=== PATIENT | female | born 1935 | race Caucasian/White ===

== ENCOUNTER 2018-03-07 06:53 | Inpatient (IN) ==
[2018-02-24 11:32] LABS: Basophils % 0.3 % (0.0-0.8); Eosinophils # 0.1 10*3/uL (0.0-0.87); Hematocrit 34.7 VOL% (35.7-47.0); Hemoglobin 10.7 GM/DL (12.0-16.0); Immature Granulocytes % 0.4 %; Immature Granulocytes Absolute 0.05 #; Lymphocytes # 1.2 10*3/uL (1.4-4.0); Lymphocytes % 10.8 % (21.3-54.2); Mean Corpuscular HGB Conc 30.8 GM/DL (32-36); Mean Corpuscular Hemoglobin 27 PG (27-34); Mean Corpuscular Volume 86.1 FL (87-102); Mean Platelet Volume 10.1 FL (9.6-12.0); Neutrophils % 78.5 % (38.7-73.9); Platelet Count 371 T/CUMM (130-400); Red Blood Count 4.03 MC/CUMM (3.8-5.5); Red Cell Distribution Width 14.2 % (9.3-17.3); White Blood Count 11.5 T/CUMM (4-12)
[2018-02-24 12:01] LABS: Alanine Aminotransferase 20 U/L (13-56); Albumin 3.5 G/DL (3.4-5.0); Alkaline Phosphatase 65 U/L (45-117); Aspartate Amino Transferase 19 U/L (0-37); Bilirubin,Total < 0.39 MG/DL (0.2-1.0); Blood Urea Nitrogen 16 MG/DL (7-18); Calcium 9.3 MG/DL (8.5-10.1); Glucose 165 MG/DL (74-106); Osmolality,Calculated 281.5 MOS/KG (273-304); Potassium 4.5 MMOL/L (3.5-5.1); Sodium 139 MMOL/L (136-145); Total Protein 6.8 G/DL (6.4-8.3)
[~2018-03-07 06:53] MED LIST: HEPARIN/NACL 0.9% 2 UNITS/ML 500 ML IV ONE; NITROGLYCERIN DRIP 50 MG/250 ML BOTTLE IV ONE; PHENYLEPHRINE 10 MG/1 ML VIAL IV ONE; ceFAZolin 1,000 MG VIAL ONE
[2018-03-07] MEDS ORDERED: ceFAZolin 1,000 MG in SYRINGE 1 EACH IV ONE (07:00)
[2018-03-07] MEDS ORDERED: LACTATED RINGERS 1,000 ML IV SCH (08:00)
[2018-03-07] MEDS ORDERED: FAMOTIDINE 20 MG TABLET PO ONE (08:28)
[2018-03-07] MEDS ORDERED: DIAZEPAM 5 MG TABLET PO ONE (08:28)
[2018-03-07] MEDS ORDERED: HEPARIN 5,000 UNIT/1 ML VIAL ONE (08:46)
[2018-03-07] MEDS ORDERED: LIDOCAINE 1% 50 ML VIAL ONE (08:47)
[2018-03-07] MEDS ORDERED: TISSUE ADHESIVE 1 EACH APPLICATOR TOP ONE (08:47)
[2018-03-07] MEDS ORDERED: ONDANSETRON 4 MG/2 ML VIAL IV PRN (10:28)
[2018-03-07] MEDS ORDERED: PROMETHAZINE 25 MG/1 ML VIAL IM PRN (10:28)
[2018-03-07] MEDS ORDERED: HYDROmorphone 2 MG/1 ML VIAL IV PRN ×2 (10:28)
[2018-03-07] MEDS ORDERED: DEXTROSE 50% 25 GM/50 ML VIAL IV PRN (10:28)
[2018-03-07] MEDS ORDERED: GLUCAGON 1 MG VIAL IM PRN (10:28)
[2018-03-07] MEDS ORDERED: NALOXONE 0.4 MG/ML VIAL IV PRN (10:28)
[2018-03-07] MEDS ORDERED: PHENYLEPHRINE DRIP 40 MG/250 ML PREMIX IV SCH (10:30)
[2018-03-07] MEDS ORDERED: SEVOFLURANE 1 UNIT/15 MINUTE INH ONE (10:47)
[2018-03-07] MEDS ORDERED: PROPOFOL 200 MG/20 ML VIAL IV ONE (10:47)
[2018-03-07] MEDS ORDERED: SUFentanil 50 MCG/ML AMP ONE (10:48)
[2018-03-07] MEDS ORDERED: DEXAMETHASONE 10 MG/1 ML VIAL ONE (10:48)
[2018-03-07] MEDS ORDERED: GLYCOPYRROLATE 0.4 MG/2 ML VIAL ONE (10:48)
[2018-03-07] MEDS ORDERED: ONDANSETRON 4 MG/2 ML VIAL ONE (10:48)
[2018-03-07] MEDS ORDERED: hydrALAZINE 20 MG/1 ML VIAL ONE (10:48)
[2018-03-07] MEDS ORDERED: NEOSTIGMINE 10 MG/10 ML VIAL ONE (10:49)
[2018-03-07] MEDS ORDERED: ACETAMINOPHEN 1,000 MG/100 ML VIAL IV ONE (10:49)
[2018-03-07] MEDS ORDERED: LACTATED RINGERS 1,000 ML IV ONE (10:49)
[2018-03-07] MEDS ORDERED: ROCURONIUM 100 MG/10 ML VIAL IV ONE (10:49)
[2018-03-07] MEDS ORDERED: PHENYLEPHRINE 1 MG/10 ML SYRINGE IV ONE (10:49)
[2018-03-07] MEDS ORDERED: HEPARIN 10,000 UNIT/10 ML VIAL ONE (10:50)
[2018-03-07] MEDS ORDERED: PROTAMINE SULFATE 50 MG/5 ML VIAL IV ONE (10:50)
[2018-03-07] MEDS: ASPIRIN EC 81 MG TABLET PO SCH (13:03)
[2018-03-07] MEDS: LACTATED RINGERS 1,000 ML IV SCH (13:04)
[2018-03-07] MEDS: FAMOTIDINE 20 MG TABLET PO SCH (13:04)
[2018-03-07] MEDS: oxyCODONE/ACETAMINOPHEN 5-325 MG TABLET PO PRN ×3 (13:09→19:23)
[2018-03-07] MEDS: NITROPRUSSIDE 100 MG in DEXTROSE 5% 250 ML IV SCH ×2 (13:14→14:31)
[2018-03-07] MEDS ORDERED: NITROPRUSSIDE 50 MG/2 ML VIAL ONE (14:15)
[2018-03-07] MEDS: INSULIN REGULAR 100 UNIT/ML SUBCUT SCH (21:26)
[2018-03-07] MEDS: glipiZIDE 5 MG TABLET PO SCH (21:34)
[2018-03-08] MEDS: oxyCODONE/ACETAMINOPHEN 5-325 MG TABLET PO PRN ×2 (03:39→09:21)
[2018-03-08] MEDS: LACTATED RINGERS 1,000 ML IV SCH ×2 (05:10→09:08)
[2018-03-08] MEDS: hydroCHLOROthiazide 25 MG TABLET PO SCH (07:30)
[2018-03-08 07:42] LABS: Apearance,Urine CLOUDY (Clear); Bacteria,Urine Many /HPF (Few); Bilirubin,Urine Negative (Negative); Blood, Urine Negative (Negative); Glucose,Urine (UA) Negative (Negative); Ketones,Urine Negative (Negative); Mucus,Urine Occasional /LPF (Occasional); Nitrite,Urine Positive (Negative); Protein,Urine Negative; Squamous Epithelial Cell,Urine Occasional /HPF (0-10); Urine Color Yellow (Yellow); Urine Specific Gravity 1.006 (1.001-1.035); Urine Urobilinogen < 2.0 EU/DL (0.2-1.0); WBC,Urine 964 /HPF (0-6)
[2018-03-08 07:50] LABS: Basophils % 0.1 % (0.0-0.8); Eosinophils # 0.1 10*3/uL (0.0-0.87); Eosinophils % 0.4 % (0.00-10.9); Hematocrit 33.3 VOL% (35.7-47.0); Hemoglobin 10.4 GM/DL (12.0-16.0); Immature Granulocytes % 0.5 %; Immature Granulocytes Absolute 0.09 #; Lymphocytes # 1.5 10*3/uL (1.4-4.0); Lymphocytes % 8.6 % (21.3-54.2); Mean Corpuscular HGB Conc 31.2 GM/DL (32-36); Mean Corpuscular Hemoglobin 27 PG (27-34); Mean Corpuscular Volume 85.2 FL (87-102); Mean Platelet Volume 9.6 FL (9.6-12.0); Monocytes # 1.8 10*3/uL (0.11-0.8); Monocytes % 10.3 % (1.7-12.7); Neutrophils # 13.6 10*3/uL (1.4-7.4); Neutrophils % 80.1 % (38.7-73.9); Platelet Count 397 T/CUMM (130-400); Red Blood Count 3.91 MC/CUMM (3.8-5.5); Red Cell Distribution Width 14.2 % (9.3-17.3)
[2018-03-08] MEDS: INSULIN REGULAR 100 UNIT/ML SUBCUT SCH ×4 (08:00→20:05)
[2018-03-08 08:32] LABS: Calcium 9.2 MG/DL (8.5-10.1); Osmolality,Calculated 272.7 MOS/KG (273-304); Potassium 4.2 MMOL/L (3.5-5.1)
[2018-03-08] MEDS: SULFAMETHOX/TRIMETHOPRIM 800-160 MG TABLET PO SCH ×2 (09:06→20:05)
[2018-03-08] MEDS: ASPIRIN EC 81 MG TABLET PO SCH (09:06)
[2018-03-08] MEDS: ROSUVASTATIN 10 MG TABLET PO SCH (09:06)
[2018-03-08] MEDS: FAMOTIDINE 20 MG TABLET PO SCH (09:07)
[2018-03-08] MEDS: ATENOLOL 100 MG TABLET PO SCH (09:07)
[2018-03-08] MEDS: CLOPIDOGREL 75 MG TABLET PO SCH (09:07)
[2018-03-08] MEDS ORDERED: MAGNESIUM HYDROXIDE SUSP 30 ML UDCUP PO PRN (16:05)
[2018-03-08] MEDS ORDERED: BENZOCAINE/MENTHOL LOZENGE 18/BOX PO PRN (17:56)
[2018-03-08] MEDS: glipiZIDE 5 MG TABLET PO SCH (20:05)
[2018-03-09] MEDS ORDERED: metFORMIN 500 MG TABLET PO SCH (08:00)
[2018-03-09] MEDS: INSULIN REGULAR 100 UNIT/ML SUBCUT SCH ×2 (08:19→10:49)
[2018-03-09] MEDS: ROSUVASTATIN 10 MG TABLET PO SCH (09:09)
[2018-03-09] MEDS: CLOPIDOGREL 75 MG TABLET PO SCH (09:09)
[2018-03-09] MEDS: hydroCHLOROthiazide 25 MG TABLET PO SCH (09:09)
[2018-03-09] MEDS: ASPIRIN EC 81 MG TABLET PO SCH (09:09)
[2018-03-09] MEDS: FAMOTIDINE 20 MG TABLET PO SCH (09:09)
[2018-03-09] MEDS: SULFAMETHOX/TRIMETHOPRIM 800-160 MG TABLET PO SCH (09:09)
[2018-03-09] MEDS: ATENOLOL 100 MG TABLET PO SCH (09:10)
[2018-03-09 11:33] VITALS: BP 106/62
== END 2018-03-09 12:50 | disposition home or self-care (01) | DRG 38 ==
LOC: N.SDSINP 06:53 → N.ICU 11:17 → N.3E 03-08 14:10
PROVIDERS: ADMIT Surgery; ATTEND Surgery

== ENCOUNTER 2018-04-13 08:40 | Inpatient (IN) ==
[2018-04-13 09:23] LABS: Basophils % 0.2 % (0.0-0.8)
[2018-04-13 09:28] LABS: Eosinophils # 0.1 10*3/uL (0.0-0.87); Eosinophils % 0.8 % (0.00-10.9); Hematocrit 22.2 VOL% (35.7-47.0); Immature Granulocytes % 0.9 %; Immature Granulocytes Absolute 0.15 #; Lymphocytes % 6.2 % (21.3-54.2); Mean Corpuscular HGB Conc 27.9 GM/DL (32-36); Mean Corpuscular Hemoglobin 23 PG (27-34); Mean Corpuscular Volume 83.1 FL (87-102); Mean Platelet Volume 9.9 FL (9.6-12.0); Monocytes # 1.4 10*3/uL (0.11-0.8); Monocytes % 8.6 % (1.7-12.7); NRBC # 0.05 10*3/uL; Neutrophils # 13.3 10*3/uL (1.4-7.4); Neutrophils % 83.3 % (38.7-73.9); PT Patient Result 10.5 SECS; Platelet Count 465 T/CUMM (130-400); Red Blood Count 2.67 MC/CUMM (3.8-5.5); Red Cell Distribution Width 15.8 % (9.3-17.3)
[2018-04-13 09:33] LABS: Hemoglobin 6.2 GM/DL (12.0-16.0)
[2018-04-13 09:38] LABS: Alanine Aminotransferase 17 U/L (13-56); Alkaline Phosphatase 53 U/L (45-117); Aspartate Amino Transferase 12 U/L (0-37); Bilirubin,Total < 0.39 MG/DL (0.2-1.0); Blood Urea Nitrogen 13 MG/DL (7-18); Calcium 8.6 MG/DL (8.5-10.1); Glucose 149 MG/DL (74-106); Osmolality,Calculated 270.2 MOS/KG (273-304); Potassium 3.4 MMOL/L (3.5-5.1); Sodium 134 MMOL/L (136-145); Total Protein 6.4 G/DL (6.4-8.3); Troponin I Only < 0.015 NG/ML (0.00-0.045)
[2018-04-13 09:50] LABS: Anisocytosis 1+
[2018-04-13 09:51] LABS: Hypochromasia 2+
[2018-04-13 09:52] LABS: Ovalocytes Few
[2018-04-13 09:53] LABS: Polychromasia Few
[2018-04-13 09:54] LABS: Microcytosis 1+; Schistocytes 4+
[2018-04-13 09:55] LABS: Platelet Estimate Increased
[2018-04-13] MEDS ORDERED: DEXTROSE 50% 25 GM/50 ML VIAL IV PRN (10:25)
[2018-04-13] MEDS ORDERED: GLUCAGON 1 MG VIAL IM PRN (10:25)
[2018-04-13] MEDS ORDERED: ONDANSETRON 4 MG/2 ML VIAL IV PRN (10:25)
[2018-04-13] MEDS ORDERED: SODIUM CHLORIDE 0.9% 1,000 ML IV PRN (10:25)
[2018-04-13 12:41] LABS: Apearance,Urine CLOUDY (Clear); Bacteria,Urine Many /HPF (Few); Bilirubin,Urine Negative (Negative); Blood, Urine Negative (Negative); Glucose,Urine (UA) Negative (Negative); Ketones,Urine Negative (Negative); Mucus,Urine Occasional /LPF (Occasional); Nitrite,Urine Negative (Negative); Protein,Urine Negative; Squamous Epithelial Cell,Urine Occasional /HPF (0-10); Urine Color Amber (Yellow); Urine Specific Gravity 1.014 (1.001-1.035); Urine Urobilinogen < 2.0 EU/DL (0.2-1.0); WBC,Urine <1 /HPF (0-6)
[2018-04-13] MEDS: INSULIN REGULAR 100 UNIT/ML SUBCUT SCH ×3 (13:29→22:05)
[2018-04-13] MEDS: ALUMINUM/MAGNES/SIMETH MAX STR 30 ML UDCUP PO PRN ×2 (16:38→22:08)
[2018-04-13 22:54] LABS: Hematocrit 26.7 VOL% (35.7-47.0)
[2018-04-13 22:58] LABS: Hemoglobin 8.1 GM/DL (12.0-16.0)
[2018-04-14 06:59] LABS: Basophils % 0.3 % (0.0-0.8); Eosinophils # 0.2 10*3/uL (0.0-0.87); Eosinophils % 1.6 % (0.00-10.9); Hematocrit 25.4 VOL% (35.7-47.0); Immature Granulocytes % 0.6 %; Immature Granulocytes Absolute 0.07 #; Lymphocytes # 1.3 10*3/uL (1.4-4.0); Lymphocytes % 10.6 % (21.3-54.2); Mean Corpuscular HGB Conc 31.5 GM/DL (32-36); Mean Corpuscular Hemoglobin 26 PG (27-34); Mean Corpuscular Volume 81.9 FL (87-102); Mean Platelet Volume 9.7 FL (9.6-12.0); Monocytes # 1.3 10*3/uL (0.11-0.8); Monocytes % 10.5 % (1.7-12.7); NRBC # 0.09 10*3/uL; Neutrophils # 9.1 10*3/uL (1.4-7.4); Neutrophils % 76.4 % (38.7-73.9); Platelet Count 363 T/CUMM (130-400); Red Cell Distribution Width 15.4 % (9.3-17.3); White Blood Count 11.9 T/CUMM (4-12)
[2018-04-14] MEDS ORDERED: MAGNESIUM HYDROXIDE SUSP 30 ML UDCUP PO PRN (07:06)
[2018-04-14] MEDS: INSULIN REGULAR 100 UNIT/ML SUBCUT SCH ×4 (08:41→22:02)
[2018-04-14] MEDS: hydroCHLOROthiazide 25 MG TABLET PO SCH (09:01)
[2018-04-14] MEDS: ATENOLOL 100 MG TABLET PO SCH (09:01)
[2018-04-14] MEDS: SIMVASTATIN 10 MG TABLET PO SCH (09:02)
[2018-04-14] MEDS: metFORMIN 500 MG TABLET PO SCH (09:02)
[2018-04-14] MEDS: MULTIVITAMIN (CENTRUM) TABLET PO SCH ×2 (09:02→21:54)
[2018-04-14 11:24] LABS: Apearance,Urine CLOUDY (Clear); Bacteria,Urine Occasional /HPF (Few); Bilirubin,Urine Negative (Negative); Blood, Urine Negative (Negative); Glucose,Urine (UA) Negative (Negative); Ketones,Urine Negative (Negative); Mucus,Urine Occasional /LPF (Occasional); Nitrite,Urine Negative (Negative); Protein,Urine Negative; RBC,Urine 3 /HPF (0-4); Urine Color Yellow (Yellow); Urine Specific Gravity 1.012 (1.001-1.035); Urine Urobilinogen < 2.0 EU/DL (0.2-1.0); WBC,Urine <1 /HPF (0-6)
[2018-04-14] MEDS: CALCIUM CARBONATE CHEW 500 MG TABLET PO PRN ×2 (13:14→16:36)
[2018-04-14] MEDS ORDERED: POTASSIUM CHLORIDE 20 MEQ TABLET PO ONE (17:11)
[2018-04-14] MEDS: FAMOTIDINE 20 MG TABLET PO SCH (21:54)
[2018-04-14] MEDS: glipiZIDE 5 MG TABLET PO SCH (21:55)
[2018-04-15 05:23] LABS: Basophils % 0.3 % (0.0-0.8); Eosinophils # 0.2 10*3/uL (0.0-0.87); Eosinophils % 1.5 % (0.00-10.9); Hematocrit 25.4 VOL% (35.7-47.0); Hemoglobin 7.5 GM/DL (12.0-16.0); Immature Granulocytes % 0.5 %; Immature Granulocytes Absolute 0.05 #; Lymphocytes # 1.1 10*3/uL (1.4-4.0); Lymphocytes % 10.7 % (21.3-54.2); Mean Corpuscular HGB Conc 29.5 GM/DL (32-36); Mean Corpuscular Hemoglobin 25 PG (27-34); Mean Corpuscular Volume 84.1 FL (87-102); Mean Platelet Volume 9.7 FL (9.6-12.0); Monocytes # 1.4 10*3/uL (0.11-0.8); Monocytes % 12.9 % (1.7-12.7); NRBC # 0.05 10*3/uL; Neutrophils # 7.9 10*3/uL (1.4-7.4); Neutrophils % 74.1 % (38.7-73.9); Platelet Count 350 T/CUMM (130-400); Red Blood Count 3.02 MC/CUMM (3.8-5.5); Red Cell Distribution Width 15.7 % (9.3-17.3); White Blood Count 10.7 T/CUMM (4-12)
[2018-04-15 05:52] LABS: Calcium 8.4 MG/DL (8.5-10.1); Osmolality,Calculated 279.4 MOS/KG (273-304); Potassium 3.7 MMOL/L (3.5-5.1)
[2018-04-15] MEDS: metFORMIN 500 MG TABLET PO SCH (09:45)
[2018-04-15] MEDS: MULTIVITAMIN (CENTRUM) TABLET PO SCH ×2 (09:45→20:23)
[2018-04-15] MEDS: INSULIN REGULAR 100 UNIT/ML SUBCUT SCH ×4 (09:45→20:25)
[2018-04-15] MEDS: SIMVASTATIN 10 MG TABLET PO SCH (09:46)
[2018-04-15] MEDS: hydroCHLOROthiazide 25 MG TABLET PO SCH (09:46)
[2018-04-15] MEDS: LOSARTAN 25 MG TABLET PO SCH (09:52)
[2018-04-15] MEDS: ATENOLOL 100 MG TABLET PO SCH (09:52)
[2018-04-15] MEDS ORDERED: PROPOFOL 200 MG/20 ML VIAL IV ONE (10:00)
[2018-04-15] MEDS ORDERED: PHENYLEPHRINE 1 MG/10 ML SYRINGE IV ONE (10:00)
[2018-04-15] MEDS ORDERED: LIDOCAINE 100 MG/5 ML SYRINGE ONE (10:00)
[2018-04-15] MEDS: FAMOTIDINE 20 MG TABLET PO SCH (20:23)
[2018-04-15] MEDS: glipiZIDE 5 MG TABLET PO SCH (20:23)
[2018-04-16 05:49] LABS: Basophils % 0.2 % (0.0-0.8); Eosinophils # 0.2 10*3/uL (0.0-0.87); Eosinophils % 2.2 % (0.00-10.9); Hematocrit 26.3 VOL% (35.7-47.0); Hemoglobin 7.6 GM/DL (12.0-16.0); Immature Granulocytes % 0.6 %; Immature Granulocytes Absolute 0.06 #; Lymphocytes % 10.5 % (21.3-54.2); Mean Corpuscular HGB Conc 28.9 GM/DL (32-36); Mean Corpuscular Hemoglobin 25 PG (27-34); Mean Corpuscular Volume 84.8 FL (87-102); Mean Platelet Volume 9.8 FL (9.6-12.0); Monocytes # 1.2 10*3/uL (0.11-0.8); Monocytes % 12.4 % (1.7-12.7); Neutrophils % 74.1 % (38.7-73.9); Platelet Count 354 T/CUMM (130-400); Red Cell Distribution Width 15.9 % (9.3-17.3); White Blood Count 9.4 T/CUMM (4-12)
[2018-04-16 06:08] LABS: Calcium 8.5 MG/DL (8.5-10.1); Osmolality,Calculated 285.1 MOS/KG (273-304); Potassium 4.5 MMOL/L (3.5-5.1)
[2018-04-16 06:33] LABS: Hypochromasia 1+; Microcytosis 1+; Platelet Estimate Normal
[2018-04-16] MEDS: INSULIN REGULAR 100 UNIT/ML SUBCUT SCH ×4 (08:13→21:42)
[2018-04-16] MEDS: MULTIVITAMIN (CENTRUM) TABLET PO SCH ×2 (09:11→21:43)
[2018-04-16] MEDS: hydroCHLOROthiazide 25 MG TABLET PO SCH (09:12)
[2018-04-16] MEDS: SIMVASTATIN 10 MG TABLET PO SCH (09:12)
[2018-04-16] MEDS: metFORMIN 500 MG TABLET PO SCH (09:12)
[2018-04-16] MEDS: ATENOLOL 100 MG TABLET PO SCH (09:17)
[2018-04-16] MEDS: LOSARTAN 25 MG TABLET PO SCH (09:17)
[2018-04-16] MEDS: cephALEXin 500 MG CAPSULE PO SCH ×2 (12:14→21:42)
[2018-04-16] MEDS: FAMOTIDINE 20 MG TABLET PO SCH (21:42)
[2018-04-16] MEDS: glipiZIDE 5 MG TABLET PO SCH (21:42)
[2018-04-17 05:35] LABS: Basophils % 0.2 % (0.0-0.8); Eosinophils # 0.2 10*3/uL (0.0-0.87); Eosinophils % 2.4 % (0.00-10.9); Hematocrit 24.5 VOL% (35.7-47.0); Hemoglobin 7.2 GM/DL (12.0-16.0); Immature Granulocytes % 0.3 %; Immature Granulocytes Absolute 0.03 #; Lymphocytes # 1.1 10*3/uL (1.4-4.0); Lymphocytes % 12.9 % (21.3-54.2); Mean Corpuscular HGB Conc 29.4 GM/DL (32-36); Mean Corpuscular Hemoglobin 25 PG (27-34); Mean Corpuscular Volume 84.5 FL (87-102); Mean Platelet Volume 9.7 FL (9.6-12.0); Monocytes % 11.8 % (1.7-12.7); NRBC # 0.02 10*3/uL; Neutrophils # 6.4 10*3/uL (1.4-7.4); Neutrophils % 72.4 % (38.7-73.9); Platelet Count 350 T/CUMM (130-400); Red Cell Distribution Width 15.9 % (9.3-17.3); White Blood Count 8.8 T/CUMM (4-12)
[2018-04-17 06:06] LABS: Calcium 8.3 MG/DL (8.5-10.1); Osmolality,Calculated 279.4 MOS/KG (273-304); Potassium 4.1 MMOL/L (3.5-5.1)
[2018-04-17] MEDS: INSULIN REGULAR 100 UNIT/ML SUBCUT SCH ×4 (08:23→21:11)
[2018-04-17] MEDS: metFORMIN 500 MG TABLET PO SCH (08:40)
[2018-04-17] MEDS: ATENOLOL 100 MG TABLET PO SCH (08:40)
[2018-04-17] MEDS: MULTIVITAMIN (CENTRUM) TABLET PO SCH ×2 (08:40→21:07)
[2018-04-17] MEDS: cephALEXin 500 MG CAPSULE PO SCH ×2 (08:40→21:08)
[2018-04-17] MEDS: hydroCHLOROthiazide 25 MG TABLET PO SCH (08:40)
[2018-04-17] MEDS: SIMVASTATIN 10 MG TABLET PO SCH (08:40)
[2018-04-17] MEDS ORDERED: FUROSEMIDE 40 MG/4 ML VIAL IV ONE (13:05)
[2018-04-17] MEDS ORDERED: SODIUM CHLORIDE 0.9% 1,000 ML IV PRN (13:08)
[2018-04-17] MEDS: LOSARTAN 25 MG TABLET PO SCH (13:16)
[2018-04-17] MEDS: glipiZIDE 5 MG TABLET PO SCH (21:08)
[2018-04-17] MEDS: FAMOTIDINE 20 MG TABLET PO SCH (21:09)
[2018-04-17 22:20] LABS: Hematocrit 32.2 VOL% (35.7-47.0); Hemoglobin 9.8 GM/DL (12.0-16.0)
[2018-04-18 05:33] LABS: Basophils % 0.4 % (0.0-0.8); Eosinophils # 0.2 10*3/uL (0.0-0.87); Eosinophils % 2.9 % (0.00-10.9); Hematocrit 31.3 VOL% (35.7-47.0); Immature Granulocytes % 0.4 %; Immature Granulocytes Absolute 0.03 #; Lymphocytes # 0.9 10*3/uL (1.4-4.0); Lymphocytes % 10.9 % (21.3-54.2); Mean Corpuscular HGB Conc 31.9 GM/DL (32-36); Mean Corpuscular Hemoglobin 26 PG (27-34); Mean Corpuscular Volume 80.1 FL (87-102); Mean Platelet Volume 9.8 FL (9.6-12.0); Monocytes # 1.3 10*3/uL (0.11-0.8); Monocytes % 15.1 % (1.7-12.7); Neutrophils # 5.9 10*3/uL (1.4-7.4); Neutrophils % 70.3 % (38.7-73.9); Platelet Count 354 T/CUMM (130-400); Red Blood Count 3.91 MC/CUMM (3.8-5.5); Red Cell Distribution Width 15.9 % (9.3-17.3); White Blood Count 8.4 T/CUMM (4-12)
[2018-04-18 05:56] LABS: Calcium 8.7 MG/DL (8.5-10.1); Osmolality,Calculated 277.5 MOS/KG (273-304); Potassium 3.6 MMOL/L (3.5-5.1)
[2018-04-18] MEDS: INSULIN REGULAR 100 UNIT/ML SUBCUT SCH ×4 (08:00→22:36)
[2018-04-18] MEDS: ATENOLOL 100 MG TABLET PO SCH (08:44)
[2018-04-18] MEDS: cephALEXin 500 MG CAPSULE PO SCH ×2 (08:44→21:13)
[2018-04-18] MEDS: hydroCHLOROthiazide 25 MG TABLET PO SCH (08:44)
[2018-04-18] MEDS: MULTIVITAMIN (CENTRUM) TABLET PO SCH ×3 (08:44→21:14)
[2018-04-18] MEDS: SIMVASTATIN 10 MG TABLET PO SCH (08:44)
[2018-04-18] MEDS: metFORMIN 500 MG TABLET PO SCH (08:44)
[2018-04-18] MEDS: LOSARTAN 25 MG TABLET PO SCH (08:44)
[2018-04-18] MEDS ORDERED: BISACODYL 5 MG TABLET PO ONE (11:21)
[2018-04-18] MEDS ORDERED: POLYETHYLENE GLYCOL POWDER 255 GM BOTTLE PO ONE (12:00)
[2018-04-18] MEDS: FAMOTIDINE 20 MG TABLET PO SCH (21:13)
[2018-04-18] MEDS: glipiZIDE 5 MG TABLET PO SCH (21:13)
[2018-04-19 05:22] LABS: Basophils % 0.3 % (0.0-0.8); Eosinophils # 0.2 10*3/uL (0.0-0.87); Eosinophils % 2.2 % (0.00-10.9); Immature Granulocytes % 0.5 %; Immature Granulocytes Absolute 0.05 #; Lymphocytes # 1.2 10*3/uL (1.4-4.0); Lymphocytes % 11.1 % (21.3-54.2); Mean Corpuscular HGB Conc 31.3 GM/DL (32-36); Mean Corpuscular Hemoglobin 25 PG (27-34); Mean Platelet Volume 9.8 FL (9.6-12.0); Monocytes # 1.3 10*3/uL (0.11-0.8); Monocytes % 12.6 % (1.7-12.7); Neutrophils # 7.7 10*3/uL (1.4-7.4); Neutrophils % 73.3 % (38.7-73.9); Platelet Count 367 T/CUMM (130-400); White Blood Count 10.6 T/CUMM (4-12)
[2018-04-19 05:33] LABS: PT Patient Result 10.7 SECS
[2018-04-19 05:46] LABS: Calcium 8.8 MG/DL (8.5-10.1); Osmolality,Calculated 275.5 MOS/KG (273-304); Potassium 3.1 MMOL/L (3.5-5.1)
[2018-04-19] MEDS: POTASSIUM CHLORIDE RIDER 10 MEQ in PREMIX 1 EACH IV PRN ×3 (06:39→13:03)
[2018-04-19] MEDS: INSULIN REGULAR 100 UNIT/ML SUBCUT SCH ×3 (07:51→17:35)
[2018-04-19] MEDS: metFORMIN 500 MG TABLET PO SCH (08:06)
[2018-04-19] MEDS: hydroCHLOROthiazide 25 MG TABLET PO SCH (08:08)
[2018-04-19] MEDS: cephALEXin 500 MG CAPSULE PO SCH (08:08)
[2018-04-19] MEDS: LOSARTAN 25 MG TABLET PO SCH (08:08)
[2018-04-19] MEDS: MULTIVITAMIN (CENTRUM) TABLET PO SCH (08:08)
[2018-04-19] MEDS: ATENOLOL 100 MG TABLET PO SCH (08:08)
[2018-04-19] MEDS: SIMVASTATIN 10 MG TABLET PO SCH (08:09)
[2018-04-19] MEDS ORDERED: LOSARTAN 50 MG TABLET PO SCH (08:52)
[2018-04-19] MEDS ORDERED: LIDOCAINE 1% 5 ML VIAL ONE (10:24)
[2018-04-19] MEDS ORDERED: PROPOFOL 200 MG/20 ML VIAL IV ONE (10:24)
[2018-04-19] MEDS ORDERED: PANTOPRAZOLE 40 MG TABLET PO SCH (14:00)
[2018-04-19 16:07] VITALS: BP 112/56
== END 2018-04-19 17:20 | disposition home or self-care (01) | DRG 378 ==
LOC: EDBD → EDUNIT# → N.ED 08:40 → N.EDINP 10:24 → N.2W 12:29 → N.TELEN 16:04
PROVIDERS: ADMIT Family Medicine; ATTEND Family Medicine

== ENCOUNTER 2022-08-24 05:33 | Inpatient (IN) ==
[2022-08-24] MEDS ORDERED: VANCOMYCIN INJ 1,000 MG in SODIUM CHLORIDE 0.9% 250 ML IV ONE (06:00)
[2022-08-24] MEDS ORDERED: CLINDAMYCIN INJ 900 MG/50 ML PREMIX IV ONE (06:00)
[2022-08-24 07:01] LABS: PT Patient Result 10.8 SECS (10.1-12.1); Partial Thromboplastin Time 27.9 SECS (23.7-32.9)
[2022-08-24] MEDS ORDERED: cloNIDine 0.1 MG TABLET PO PRN (09:00)
[2022-08-24] MEDS ORDERED: DEXMEDETOMIDINE 200 MCG/2 ML VIAL ONE (09:30)
[2022-08-24] MEDS ORDERED: DEXAMETHASONE 4 MG/1 ML VIAL ONE ×2 (09:30→10:48)
[2022-08-24] MEDS ORDERED: fentaNYL 100 MCG/2 ML VIAL ONE ×2 (09:30→09:40)
[2022-08-24] MEDS ORDERED: LIDOCAINE 1% 5 ML VIAL ONE (09:30)
[2022-08-24] MEDS ORDERED: ROPIVACAINE 0.5% 30 ML VIAL ONE (09:30)
[2022-08-24] MEDS ORDERED: propofoL 200 MG/20 ML VIAL IV ONE ×2 (09:31→10:57)
[2022-08-24] MEDS ORDERED: ETOMIDATE 40 MG/20 ML VIAL IV ONE (09:31)
[2022-08-24] MEDS ORDERED: BUPIVACAINE SPINAL 0.75% 2 ML AMP SPINAL ONE (09:31)
[2022-08-24] MEDS ORDERED: KETAMINE 500 MG/10 ML VIAL ONE (09:32)
[2022-08-24] MEDS ORDERED: buprenorphine HCL 0.3 MG/ML VIAL ONE (10:08)
[2022-08-24] MEDS ORDERED: FUROSEMIDE 20 MG TABLET PO PRN (10:18)
[2022-08-24] MEDS ORDERED: POTASSIUM CHLORIDE 10 MEQ TABLET PO PRN (10:18)
[2022-08-24] MEDS ORDERED: ONDANSETRON 4 MG/2 ML VIAL IV PRN (10:20)
[2022-08-24] MEDS ORDERED: MORPHINE 2 MG/1 ML SYRINGE IV PRN ×2 (10:20)
[2022-08-24] MEDS ORDERED: MAGNESIUM HYDROXIDE SUSP 30 ML UDCUP PO PRN (10:20)
[2022-08-24] MEDS ORDERED: KETOROLAC 15 MG/1 ML VIAL IV SCH (10:30)
[2022-08-24] MEDS ORDERED: ePHEDrine 50 MG/ML VIAL ONE (10:32)
[2022-08-24] MEDS ORDERED: PHENYLEPHRINE 1 MG/10 ML SYRINGE IV ONE ×2 (10:46→10:57)
[2022-08-24] MEDS ORDERED: ONDANSETRON 4 MG/2 ML VIAL ONE (10:48)
[2022-08-24] MEDS ORDERED: LIDOCAINE 2% 5 ML VIAL ONE (11:02)
[2022-08-24] MEDS ORDERED: SODIUM CHLORIDE 0.9% 100 ML IV ONE (11:39)
[2022-08-24] MEDS ORDERED: LACTATED RINGERS 1,000 ML IV ONE (11:39)
[2022-08-24] MEDS ORDERED: TRANEXAMIC ACID 1,000 MG/10 ML VIAL ONE (11:40)
[2022-08-24] MEDS: KETOROLAC 15 MG/1 ML VIAL IV SCH ×2 (14:58→21:08)
[2022-08-24] MEDS ORDERED: GLUCAGON 1 MG VIAL IM PRN (15:48)
[2022-08-24] MEDS ORDERED: DEXTROSE 10% 250 ML BAG IV PRN (15:48)
[2022-08-24] MEDS: LACTATED RINGERS 1,000 ML IV SCH (17:35)
[2022-08-24] MEDS: INSULIN LISPRO 100 UNIT/ML SUBCUT SCH ×2 (18:29→21:11)
[2022-08-24] MEDS: CLINDAMYCIN INJ 900 MG/50 ML PREMIX IV SCH (18:41)
[2022-08-24] MEDS ORDERED: metFORMIN 500 MG TABLET PO SCH (21:00)
[2022-08-24] MEDS: glipiZIDE 5 MG TABLET PO SCH (21:08)
[2022-08-24] MEDS: NYSTATIN CREAM 15 GM TUBE TOP SCH (21:09)
[2022-08-24] MEDS: SIMVASTATIN 20 MG TABLET PO SCH (21:09)
[2022-08-24] MEDS: PANTOPRAZOLE 40 MG TABLET PO SCH (21:09)
[2022-08-24] MEDS: atenoloL 50 MG TABLET PO SCH (21:09)
[2022-08-24] MEDS: DOCUSATE SODIUM 100 MG CAPSULE PO SCH (21:09)
[2022-08-24] MEDS: NON-FORMULARY MEDICATION (Chlorpheniramine Maleate [Chlortabs] 4 mg Tablet) PO SCH (21:13)
[2022-08-25] MEDS: CLINDAMYCIN INJ 900 MG/50 ML PREMIX IV SCH (01:59)
[2022-08-25] MEDS: KETOROLAC 15 MG/1 ML VIAL IV SCH (01:59)
[2022-08-25] MEDS: LACTATED RINGERS 1,000 ML IV SCH ×2 (02:01→11:47)
[2022-08-25 05:49] LABS: Basophils % 0.2 % (0.0-0.8); Eosinophils % 0.1 % (0.00-10.9); Hematocrit 31.5 VOL% (35.7-47.0); Hemoglobin 10.1 GM/DL (12.0-16.0); Immature Granulocytes % 0.6 %; Immature Granulocytes Absolute 0.09 #; Lymphocytes % 7.1 % (21.3-54.2); Mean Corpuscular HGB Conc 32.1 GM/DL (32-36); Mean Corpuscular Volume 82.7 FL (87-102); Mean Platelet Volume 10.5 FL (9.6-12.0); Monocytes # 1.8 10*3/uL (0.11-0.8); Monocytes % 12.3 % (1.7-12.7); Neutrophils % 79.7 % (38.7-73.9); Platelet Count 270 T/CUMM (130-400); Red Blood Count 3.81 MC/CUMM (3.8-5.5); Red Cell Distribution Width 14.6 % (9.3-17.3); White Blood Count 14.6 T/CUMM (4-12)
[2022-08-25 06:03] LABS: Osmolality,Calculated 278.4 MOS/KG (273-304); Potassium 3.7 MMOL/L (3.5-5.1)
[2022-08-25] MEDS: FONDAPARINUX 2.5 MG/0.5 ML SYRINGE SUBCUT SCH (06:18)
[2022-08-25] MEDS: INSULIN LISPRO 100 UNIT/ML SUBCUT SCH ×4 (08:09→20:50)
[2022-08-25] MEDS: DOCUSATE SODIUM 100 MG CAPSULE PO SCH ×2 (08:53→20:39)
[2022-08-25] MEDS: metFORMIN 500 MG TABLET PO SCH ×2 (08:53→16:55)
[2022-08-25] MEDS: MULTIVITAMIN (CENTRUM) TABLET PO SCH ×2 (08:53→09:57)
[2022-08-25] MEDS: hydroCHLOROthiazide 25 MG TABLET PO SCH (08:53)
[2022-08-25] MEDS: ASPIRIN EC 81 MG TABLET PO SCH ×2 (08:53→09:56)
[2022-08-25] MEDS: atenoloL 50 MG TABLET PO SCH ×2 (08:54→20:39)
[2022-08-25] MEDS: LOSARTAN 50 MG TABLET PO SCH ×2 (08:54→20:39)
[2022-08-25] MEDS: MULTIVITAMIN (OCUVITE) TABLET PO SCH ×3 (08:54→12:55)
[2022-08-25] MEDS: NYSTATIN CREAM 15 GM TUBE TOP SCH ×2 (08:58→20:50)
[2022-08-25] MEDS: PANTOPRAZOLE 40 MG TABLET PO SCH (20:39)
[2022-08-25] MEDS: SIMVASTATIN 20 MG TABLET PO SCH (20:40)
[2022-08-25] MEDS: glipiZIDE 5 MG TABLET PO SCH (20:40)
[2022-08-25] MEDS: NON-FORMULARY MEDICATION (Chlorpheniramine Maleate [Chlortabs] 4 mg Tablet) PO SCH (20:49)
[2022-08-26] MEDS: FONDAPARINUX 2.5 MG/0.5 ML SYRINGE SUBCUT SCH (05:47)
[2022-08-26 06:05] LABS: Basophils # 0.1 10*3/uL (0.0-0.2); Basophils % 0.4 % (0.0-0.8); Eosinophils # 0.7 10*3/uL (0.0-0.87); Eosinophils % 4.9 % (0.00-10.9); Hematocrit 31.6 VOL% (35.7-47.0); Immature Granulocytes % 0.5 %; Immature Granulocytes Absolute 0.07 #; Lymphocytes # 1.4 10*3/uL (1.4-4.0); Lymphocytes % 9.9 % (21.3-54.2); Mean Corpuscular HGB Conc 31.6 GM/DL (32-36); Mean Corpuscular Volume 83.8 FL (87-102); Mean Platelet Volume 10.1 FL (9.6-12.0); Monocytes # 1.8 10*3/uL (0.11-0.8); Monocytes % 13.1 % (1.7-12.7); Neutrophils % 71.2 % (38.7-73.9); Platelet Count 267 T/CUMM (130-400); Red Blood Count 3.77 MC/CUMM (3.8-5.5); Red Cell Distribution Width 14.9 % (9.3-17.3); White Blood Count 13.8 T/CUMM (4-12)
[2022-08-26] MEDS: MULTIVITAMIN (CENTRUM) TABLET PO SCH (09:30)
[2022-08-26] MEDS: atenoloL 50 MG TABLET PO SCH ×2 (09:30→21:03)
[2022-08-26] MEDS: LOSARTAN 50 MG TABLET PO SCH ×2 (09:30→21:04)
[2022-08-26] MEDS: MULTIVITAMIN (OCUVITE) TABLET PO SCH (09:30)
[2022-08-26] MEDS: hydroCHLOROthiazide 25 MG TABLET PO SCH (09:30)
[2022-08-26] MEDS: metFORMIN 500 MG TABLET PO SCH ×2 (09:30→16:39)
[2022-08-26] MEDS: DOCUSATE SODIUM 100 MG CAPSULE PO SCH ×2 (09:31→21:04)
[2022-08-26] MEDS: ASPIRIN EC 81 MG TABLET PO SCH (09:32)
[2022-08-26] MEDS: INSULIN LISPRO 100 UNIT/ML SUBCUT SCH ×4 (09:32→21:05)
[2022-08-26] MEDS: NYSTATIN CREAM 15 GM TUBE TOP SCH ×2 (09:33→21:05)
[2022-08-26] MEDS: NON-FORMULARY MEDICATION (Chlorpheniramine Maleate [Chlortabs] 4 mg Tablet) PO SCH (21:01)
[2022-08-26] MEDS: glipiZIDE 5 MG TABLET PO SCH (21:03)
[2022-08-26] MEDS: PANTOPRAZOLE 40 MG TABLET PO SCH (21:04)
[2022-08-26] MEDS: SIMVASTATIN 20 MG TABLET PO SCH (21:04)
[2022-08-27] MEDS: FONDAPARINUX 2.5 MG/0.5 ML SYRINGE SUBCUT SCH (06:39)
[2022-08-27] MEDS: MULTIVITAMIN (CENTRUM) TABLET PO SCH (08:14)
[2022-08-27] MEDS: DOCUSATE SODIUM 100 MG CAPSULE PO SCH (08:14)
[2022-08-27] MEDS: MULTIVITAMIN (OCUVITE) TABLET PO SCH (08:14)
[2022-08-27] MEDS: LOSARTAN 50 MG TABLET PO SCH (08:14)
[2022-08-27] MEDS: ASPIRIN EC 81 MG TABLET PO SCH (08:15)
[2022-08-27] MEDS: metFORMIN 500 MG TABLET PO SCH (08:15)
[2022-08-27] MEDS: atenoloL 50 MG TABLET PO SCH (08:15)
[2022-08-27] MEDS: hydroCHLOROthiazide 25 MG TABLET PO SCH (08:15)
[2022-08-27] MEDS: NYSTATIN CREAM 15 GM TUBE TOP SCH (08:16)
[2022-08-27] MEDS: INSULIN LISPRO 100 UNIT/ML SUBCUT SCH ×2 (10:04→11:55)
[2022-08-27 11:22] VITALS: BP 112/47
[2022-08-27] MEDS ORDERED: INFLUENZA VIRUS VACCINE 0.5 ML SYRINGE IM ONE (11:32)
== END 2022-08-27 14:55 | disposition swing bed (61) | DRG 470 ==
LOC: N.OR 05:33 → N.SDSINP 05:33 → N.3E 10:21
PROVIDERS: ADMIT Orthopaedic Surgery; ATTEND Orthopaedic Surgery